=== PATIENT | male | born 1965 | race Caucasian/White ===

== ENCOUNTER 2018-10-17 01:46 | Emergency (ER) | payer BC ==
[~2018-10-17] VITALS: Ht 175.2 cm; Wt 79.4 kg
--- NOTE | ~2018-10-17 | EKG ---
[place], [place] ELECTROCARDIOGRAM REPORT NAME: AKSHAT PATTERSON UNIT #: [id number] ROOM: DOCTOR: EPIPHANY DRAFT REPORT BIRTHDATE: [birth year] [facility] Test Date: 2018-10-17 Test Time: 02:05:19 Pat Name: AKSHAT PATTERSON Department: ER Room: 2 Gender: M Aws Architect: Diana Merrill : 1965 Requested By: LUCAS HUTSON Order Number: [id number] Reading MD: Steff Roberson MD Measurements Intervals [place] Rate: 63 P: 52 VA: 128 QRS: 8 QRSD: 105 T: 104 QT: 382 QTc: 392 Interpretive Statements Sinus rhythm LVH with secondary repolarization abnormality Electronically Signed On 10-19-2018 13:53:02 PDT by Steff Roberson MD CM:EKGRPT:ELECTROCARDIOGRAM REPORT [id number] LUCAS MIRELES DRAFT REPORT LUCAS HUTSON DO
[2018-10-17 02:08] LABS: BASO % 0.3 % (0.0-1.0); EOS # 0.1 10*3/uL (0.0-0.4); EOS % 0.7 % (1.0-4.0); HEMATOCRIT 48.4 % (42.0-52.0); HEMOGLOBIN 16.1 g/dl (14.0-18.0); LYMPH # 1.8 10*3/uL (1.3-4.4); MEAN CELL VOLUME 92.4 fl (80.0-94.0); MEAN CORPUSCULAR HGB 30.7 pg (27.0-31.0); MEAN CORPUSCULAR HGB CONC 33.3 g/dl (33.0-37.0); MEAN PLATELET VOLUME 10.2 fl (9.6-12.3); MONO # 0.8 10*3/uL (0.1-1.0); NEUT # 10.3 10*3/uL (2.3-7.9); NEUT % 78.6 % (47.0-73.0); PLATELET COUNT AUTOMATED 244 10*3/uL (130-400); RED BLOOD COUNT 5.24 10*6/uL (4.50-5.90); RED CELL DISTRI WIDTH 13.5 % (0-14.5); WHITE BLOOD COUNT 13.1 10*3/uL (4.8-10.8)
[2018-10-17 02:31] LABS: BILIRUBIN NEGATIVE (NEGATIVE); BLOOD NEGATIVE (NEGATIVE); CLARITY SL CLOUDY (CLEAR); COLOR YELLOW (YELLOW); GLUCOSE NEGATIVE (NEGATIVE); KETONE NEGATIVE (NEGATIVE); LEUKO ESTERASE NEGATIVE (NEGATIVE); NITRITE NEGATIVE (NEGATIVE); PH 5.5 (5.0-9.0); SPECIFIC GRAVITY >= 1.030 (1.005-1.030); UROBILINOGEN 0.2 E.U./dl (0.2-1.0)
[2018-10-17 02:32] LABS: ALBUMIN 3.9 gm/dl (3.1-4.5); ALKALINE PHOSPHATASE 88 U/L (45-117); BUN 23 mg/dl (7-24); CHLORIDE 104 mmol/L (98-107); CREATININE 0.91 mg/dL (0.70-1.30); POTASSIUM 3.5 mmol/L (3.5-5.1); SGOT/AST 23 IU/L (3-35); SGPT/ALT 44 U/L (12-78); SODIUM 137 mmol/L (136-145); TOTAL PROTEIN 7.9 gm/dL (6.4-8.2); TROPONIN I 0.024 ng/ml (<0.045)
[2018-10-17 02:39] LABS: URINE AMPHETAMINES < 1000 (1000ng/ml); URINE BARBITURATES < 200 (200ng/ml); URINE BENZODIAZEPINES < 200 (200ng/ml); URINE CANNABINOIDS (THC) < 50 (50ng/ml); URINE COCAINE < 300 (300ng/ml); URINE METHADONE < 300 (300ng/ml); URINE OPIATES < 300 (300ng/ml); URINE PHENCYCLIDINE < 25 (25ng/ml)
[2018-10-17 02:43] LABS: BACTERIA TRACE; MUCOUS 1+; RBC 0-2 rbc/hpf (0-2); WBC 0-2 wbc/hpf (0-5)
== END 2018-10-17 03:24 | disposition short-term general hospital (02) ==
LOC: ED 01:46
PROVIDERS: Emergency Medicine
DX: I63.89 Other cerebral infarction (principal); F17.200 Nicotine dependence, unspecified, uncomplicated; Z88.6 Allergy status to analgesic agent

== ENCOUNTER → 2019-02-06 | Outpatient (CLI) | payer BC, OTHER ==
--- NOTE | ~2019-02-06 | HM ---
[place], [place] HOLTER MONITOR REPORT NAME: AKSHAT PATTERSON UNIT #: [id number] ROOM: DOCTOR: BRIGIDO STODDARD MD BIRTHDATE: [birth year] DOS: 02/08/2019 24-HOUR HOLTER MONITOR REFERRING: Jordyn. INDICATIONS: Atrial fibrillation. FINDINGS: The patient underwent standard protocol 24-hour Holter monitor. 1. The patient's baseline rhythm is sinus rhythm with average heart rate of 80 beats per minute with a minimum heart rate of 49 beats per minute with a maximum heart rate of 122 beats per minute. 2. Supraventricular activity: The patient had 11 isolated PACs. 3. Ventricular activity: The patient had 120 isolated PVCs. 4. No significant blocks, pauses, or bradycardia. 5. No significant atrial fibrillation. 6. No diary was returned. SUMMARY OF FINDINGS: Unremarkable 24-hour Holter monitor with rare PACs and PVCs. No atrial fibrillation was noted. BRIGIDO STODDARD MD CM:HOLTER:HOLTER MONITOR REPORT [id number] BRIGIDO STODDARD MD
== END | disposition home or self-care (01) ==
LOC: CARD 10:00
DX: I48.91 Unspecified atrial fibrillation (principal)

== ENCOUNTER → 2020-01-31 | Outpatient (CLI) | payer OTHER | END | disposition home or self-care (01) | LOC: US 12:10 | DX: R60.0 Localized edema (principal); M79.89 Other specified soft tissue disorders ==

== ENCOUNTER → 2025-03-19 | Outpatient (CLI) | payer OTHER | END | disposition home or self-care (01) | LOC: CT 12:34 | PROVIDERS: ATTEND Nurse Practitioner Primary Care | DX: Z12.2 Encounter for screening for malignant neoplasm of respiratory organs (principal); F17.210 Nicotine dependence, cigarettes, uncomplicated ==